=== PATIENT | female | born 1980 | race American Indian/Alaskan Native ===

== ENCOUNTER 2018-01-13 13:05 | Inpatient (IN) | payer MEDICAID ==
[2018-01-13 13:37] LABS: Basophils % (Auto) 0.3 % (0.0-1.8); Eosinophils # (Auto) 0.1 K/mm3 (0.0-0.4); Hematocrit 39.5 % (30.3-42.9); Hemoglobin 13.2 gm/dl (10.1-14.3); Lymphocytes # (Auto) 2.6 K/mm3 (1.2-5.4); Lymphocytes % (Auto) 45.3 % (13.4-35.0); Mean Corpuscular HGB Conc 33 % (30-34); Mean Corpuscular Hemoglobin 27 pg (28-32); Mean Corpuscular Volume 80 fl (79-97); Monocytes # (Auto) 0.7 K/mm3 (0.0-0.8); Monocytes % (Auto) 11.5 % (0.0-7.3); Platelet Count 262 K/mm3 (140-440); Red Blood Count 4.93 M/mm3 (3.65-5.03); Red Cell Distribution Width 15.5 % (13.2-15.2)
[2018-01-13 13:59] LABS: Alanine Aminotransferase 16 units/L (7-56); Albumin 3.7 g/dL (3.9-5); BUN/Creatinine Ratio 10; Blood Urea Nitrogen 8 mg/dL (7-17); Hemolysis Index 5; Lipase 22 units/L (13-60)
[2018-01-13] MEDS ORDERED: DILAUDID IV ONE ×3 (14:45→21:55)
[2018-01-13] MEDS ORDERED: NACL 0.9% 1000 ML 1,000 ML IV ONE ×2 (14:46→18:46)
[2018-01-13] MEDS ORDERED: ZOFRAN IV ONE (14:48)
--- NOTE | 2018-01-13 14:48 | Emergency Department Report ---
ED Abdominal Pain HPI - General Chief Complaint: Abdominal Pain Stated Complaint: SEVERE PAIN MIDDLE STOMACH Time Seen by Provider: 01/13/18 14:46 Source: patient Mode of arrival: Ambulatory Limitations: No Limitations - History of Present Illness MD Complaint: abdominal pain -: Sudden Location: diffuse Radiation: none Migration to: no migration Severity: severe Severity scale (0 -10): 10 Quality: cramping, sharp Consistency: constant Improves With: nothing Worsens With: nothing Context: other (Sickle cell disease) Associated Symptoms: nausea, vomiting Treatments Prior to Arrival: prescription analgesics - Related Data Allergies Allergy/AdvReac Type Severity Reaction Status Date / Time acetaminophen [From Percocet] Allergy Hives Verified 01/13/18 13:17 hydrocodone [From Lortab] Allergy Angioedema Verified 01/13/18 13:17 oxycodone [From Percocet] Allergy Hives Verified 01/13/18 13:17 Penicillins Allergy Hives Verified 01/13/18 13:17 Sulfa (Sulfonamide Allergy Hives Verified 01/13/18 13:17 Antibiotics) ED Review of Systems ROS: Stated complaint: SEVERE PAIN MIDDLE STOMACH Other details as noted in HPI Comment: All other systems reviewed and negative Constitutional: denies: chills, fever Eyes: denies: eye pain ENT: denies: ear pain Respiratory: shortness of breath. denies: cough, orthopnea Cardiovascular: chest pain, palpitations Endocrine: no symptoms reported Gastrointestinal: abdominal pain, nausea, vomiting. denies: diarrhea, constipation Genitourinary: denies: urgency, dysuria, frequency Musculoskeletal: denies: back pain, joint swelling Skin: denies: rash, lesions, change in color Neurological: denies: headache, weakness, numbness Psychiatric: denies: anxiety, depression Hematological/Lymphatic: denies: easy bleeding, easy bruising ED Past Medical Hx - Past Medical History Hx Sickle Cell Disease: Yes - Surgical History Additional Surgical History: pancrea removed - Social History Smoking Status: Never Smoker Substance Use Type: None ED Physical Exam - General Limitations: No Limitations General appearance: alert, in distress - Head Head exam: Present: atraumatic, normocephalic, normal inspection - Eye Eye exam: Present: normal appearance, PERRL, EOMI Pupils: Present: normal accommodation - ENT ENT exam: Present: normal exam, normal orophraynx, mucous membranes moist - Neck Neck exam: Present: normal inspection, full ROM. Absent: tenderness - Respiratory Respiratory exam: Present: normal lung sounds bilaterally. Absent: respiratory distress, wheezes, rales, rhonchi - Cardiovascular Cardiovascular Exam: Present: regular rate, normal rhythm, normal heart sounds - GI/Abdominal GI/Abdominal exam: Present: soft, tenderness, guarding, rebound, normal bowel sounds. Absent: distended - Rectal Rectal exam: Present: deferred - Extremities Exam Extremities exam: Present: normal inspection, full ROM, normal capillary refill. Absent: tenderness - Back Exam Back exam: Present: normal inspection, full ROM - Neurological Exam Neurological exam: Present: alert, oriented X3, CN II-XII intact - Psychiatric Psychiatric exam: Present: normal affect, normal mood. Absent: depressed - Skin Skin exam: Present: warm, dry, intact, normal color. Absent: rash ED Course Vital Signs 01/13/18 01/13/18 01/13/18 13:08 14:30 14:46 Temperature 97.1 F L Pulse Rate 129 H Respiratory 20 Rate Blood Pressure 138/109 111/76 O2 Sat by Pulse 98 100 99 Oximetry 01/13/18 01/13/18 01/13/18 15:00 15:16 15:30 Temperature Pulse Rate Respiratory Rate Blood Pressure 111/76 111/76 111/76 O2 Sat by Pulse 99 99 100 Oximetry 01/13/18 01/13/18 01/13/18 15:46 16:00 16:16 Temperature Pulse Rate Respiratory Rate Blood Pressure 111/76 111/76 111/76 O2 Sat by Pulse 100 100 100 Oximetry 01/13/18 01/13/18 01/13/18 16:30 16:46 17:00 Temperature Pulse Rate Respiratory Rate Blood Pressure 111/76 111/76 111/76 O2 Sat by Pulse 100 100 100 Oximetry 01/13/18 01/13/18 01/13/18 18:50 19:00 19:16 Temperature Pulse Rate Respiratory Rate Blood Pressure 125/72 125/72 108/29 O2 Sat by Pulse 100 96 99 Oximetry 01/13/18 19:30 Temperature Pulse Rate Respiratory Rate Blood Pressure 121/78 O2 Sat by Pulse 99 Oximetry - Reevaluation(s) Reevaluation #1: 01/13/18 20:35 I discussed patient with hospitalist on-call Dr Cagle. He will admit patient to the hospital for further evaluation and management. ED Medical Decision Making - Lab Data Result diagrams: 01/13/18 15:06 01/13/18 15:06 - Radiology Data Radiology results: report reviewed, image reviewed - Medical Decision Making Abdominal Pain. Shortness of Breath. Sickle Cell Pain Crisis. Critical care attestation.: If time is entered above; I have spent that time in minutes in the direct care of this critically ill patient, excluding procedure time. ED Disposition Clinical Impression: Sickle cell pain crisis, Shortness of breath Abdominal pain Qualifiers: Abdominal location: generalized Qualified Code(s): R10.84 - Generalized abdominal pain Clinical Impression: (Ruled Out): Abdominal pain affecting Disposition: OP ADMIT IP TO THIS HOSP Is pt being admited?: Yes Does the pt Need Aspirin: No Condition: Stable Instructions: Abdominal Pain (ED) Referrals: PRIMARY CARE, [Primary Care Provider] - 3-5 Days Time of Disposition: 20:33
[2018-01-13] MEDS ORDERED: BENADRYL ONE ×2 (14:54→21:47)
[2018-01-13] MEDS ORDERED: BENADRYL IV ONE ×2 (15:22→21:55)
[2018-01-13 15:23] LABS: Basophils % (Auto) 0.4 % (0.0-1.8); Eosinophils # (Auto) 0.1 K/mm3 (0.0-0.4); Eosinophils % (Auto) 2.1 % (0.0-4.3); Hemoglobin 12.5 gm/dl (10.1-14.3); Lymphocytes # (Auto) 2.5 K/mm3 (1.2-5.4); Mean Corpuscular HGB Conc 33 % (30-34); Mean Corpuscular Hemoglobin 26 pg (28-32); Mean Corpuscular Volume 80 fl (79-97); Monocytes # (Auto) 0.7 K/mm3 (0.0-0.8); Monocytes % (Auto) 11.8 % (0.0-7.3); Platelet Count 267 K/mm3 (140-440); Red Blood Count 4.77 M/mm3 (3.65-5.03); Red Cell Distribution Width 15.6 % (13.2-15.2)
[2018-01-13 15:32] LABS: INR 0.89 (0.87-1.13); Partial Thromboplastin Time 23.8 Sec. (24.2-36.6)
--- NOTE | 2018-01-13 15:41 | XRay Report ---
FINAL REPORT EXAM: XR CHEST 1V AP HISTORY: SOB TECHNIQUE: AP portable view of the chest PRIORS: None. FINDINGS: Lines, tubes, and devices: N/A Lungs and pleura: Trachea is normal in position. Lungs are clear of infiltrate, pleural effusion, vascular congestion, or pneumothorax. Cardiomediastinal silhouette: Cardiac and mediastinal silhouettes are unremarkable. Other: Bony structures are intact. IMPRESSION: No acute cardiopulmonary process seen.
[2018-01-13 15:42] LABS: Albumin 3.1 g/dL (3.9-5); BUN/Creatinine Ratio 11; Blood Urea Nitrogen 8 mg/dL (7-17); Calcium 8.8 mg/dL (8.4-10.2); Hemolysis Index 291
[2018-01-13 15:59] LABS: Alanine Aminotransferase < 5 units/L (7-56)
[2018-01-13] MEDS ORDERED: TORADOL IV ONE (16:12)
[2018-01-13] MEDS ORDERED: DILAUDID ONE ×2 (18:55→21:47)
--- NOTE | 2018-01-13 20:22 | Cat Scan Report ---
FINAL REPORT EXAM: CT ABDOMEN PELVIS W CON HISTORY: abdominal pain TECHNIQUE: Standard enhanced CT of the abdomen and pelvis. Coronal and sagittal reconstruction was also performed. Delayed imaging through the kidneys and bladder was obtained. Contrast: 100 mL Omnipaque 350 given IV. PRIORS: None. FINDINGS: Within the abdomen, the liver, spleen, pancreas, gallbladder, adrenal glands, and right kidney are unremarkable. There is a 1 cm hypodense rounded cyst in the midpole of the left kidney. No evidence for retroperitoneal or pelvic lymphadenopathy is seen. The bowel loops have normal caliber. No soft tissue mass, fluid collection, inflammatory change, or free air is seen within the abdomen or pelvis. The appendix has been surgically removed. There is a small midline umbilical hernia containing only fat. Within the pelvis, the bladder is unremarkable. Bilateral ureteral jets are noted on delayed images. The uterus contains a T-shaped IUD in the fundal portion. There is a hyperdense 1.5 cm the rounded focus in the right ovary, likely a hemorrhagic cyst. No evidence for mass or lymphadenopathy is seen in the pelvis. Images through the upper abdomen include the lung bases which are expanded and clear. Bony structures show no focal abnormalities and are intact. IMPRESSION: 1. no acute intra-abdominal process noted. 2. Cyst in the left kidney 3. Tiny umbilical hernia containing only fat. 4. Probable hemorrhagic cyst in the right ovary.
--- NOTE | 2018-01-13 20:43 | Cat Scan Report ---
FINAL REPORT EXAM: CT ANGIO CHEST HISTORY: Shortness of breath, elevated D-dimer TECHNIQUE: Enhanced CT of the chest at 2.5 mm axial intervals following a pulmonary embolism protocol. Coronal and sagittal imaging were also obtained. Coronal oblique MIP projections were obtained. Contrast: 100 ml of Omnipaque 350 given IV. PRIORS: None. FINDINGS: There is no evidence for pulmonary embolism in the main pulmonary artery, right and left pulmonary arteries or their major distributions. However, CT does not exclude distal pulmonary emboli. Mild bibasilar linear atelectasis is noted posteriorly. Otherwise, the lung parenchyma are expanded and clear with no evidence for parenchymal nodules, consolidation, congestion, or pleural effusion. There is no evidence for mediastinal, hilar, or axillary adenopathy. Calcified granulomas in the right hilum are noted. Cardiovascular structures are within normal limits. No evidence for ventricular chamber enlargement is seen. Images through the lung bases include the upper abdomen which show no abnormalities of the visualized abdominal viscera. Bony structures demonstrate no focal abnormalities. IMPRESSION: No evidence for pulmonary embolism. Mild bibasilar linear atelectasis and granulomatous disease.
[2018-01-13 20:59] LABS: HCG Qualitative,Urine Negative (Negative)
[2018-01-13 21:02] LABS: Bilirubin,Urine NEG (Negative); Blood,Urine SM (Negative); Color,Urine Yellow (Yellow); Protein,Urine <15 mg/dL mg/dL (Negative); RBC,Urine < 1.0 /HPF (0.0-6.0); Urobilinogen,Urine < 2.0 mg/dL (<2.0)
[2018-01-13] MEDS ORDERED: MILK OF MAGNESIA PO PRN (22:21)
[2018-01-13] MEDS ORDERED: DULCOLAX PR PRN (22:21)
--- NOTE | 2018-01-13 22:28 | History and Physical Report ---
History of Present Illness Date of examination: 01/13/18 History of present illness: 37-year-old woman with history of sickle cell comes to the ER for evaluation of pain. Pain is in the legs, sharp pain, intermittent every 5minutes, intensity 8/10, no radiation, better with pain meds. no nausea vomiting. Also complain of abdominal pain, intermittent for some months, now constant . Her pain was thought to be due to appendicitis was removed recently. Pain in epigastric area, constant, intensiy 7/10, no radiation, worse with bowel movements and associated with cold sweats. Review of systems Constitutional: no weight loss, chills Ears, eyes, nose, mouth and throat: no nasal congestion, no nasal discharge, no sinus pressure, no vision change, no red eye. Neck: No neck pain or rigidity. Cardiovascular: no palpitations, diaphoresis Respiratory: no cough, shortness of breath Gastrointestinal: no hematochezia Genitourinary : no frequency , no hematuria Musculoskeletal: no joint swelling or muscle ache Integumentary: no rash, no pruritis Neurological: no parathesias, no numbness, no focal weakness Endocrine: no cold or heat intolerance, no polyuria or polydipsia Hematologic/Lymphatic: no easy bruising, no easy bleeding, no gland swelling Allergic/Immunologic: no urticaria, no angioedema. PAST MEDICAL HISTORY: Sickle cell PAST SURGICAL HISTORY: Appendectomy, spinal surgery SOCIAL HISTORY: No alcohol abuse, tobacco, drugs FAMILY HISTORY: Hypertension Medications and Allergies Allergies Allergy/AdvReac Type Severity Reaction Status Date / Time acetaminophen [From Percocet] Allergy Hives Verified 01/13/18 13:17 hydrocodone [From Lortab] Allergy Angioedema Verified 01/13/18 13:17 oxycodone [From Percocet] Allergy Hives Verified 01/13/18 13:17 Penicillins Allergy Hives Verified 01/13/18 13:17 Sulfa (Sulfonamide Allergy Hives Verified 01/13/18 13:17 Antibiotics) Exam - Physical Exam Narrative exam: Gen. appearance: Patient lying in bed in no acute distress, on BIPAP HEENT: Normocephalic/atraumatic, pupils equal round reactive to light, extra occular movement intact, no scleral icterus, no JVD or thyromegaly or nodule, neck is supple, mucous membrane moist, no erythema or exudate Heart: S1-S2, regular rate and rhythm Lungs:Clear, breathing comfortable Abdomen: Positive bowel sounds, nontender, nondistended, no organomegaly Extremities: No edema, cyanosis, clubbing Neuro:: Oriented 3 , cranial nerves II-12 intact, speech, motor intact Skin: No rash, nodules, warm dry - Constitutional Vitals: Temp Pulse Resp BP Pulse Ox 97.1 F L 129 H 20 121/78 99 01/13/18 13:08 01/13/18 13:08 01/13/18 13:08 01/13/18 19:30 01/13/18 19:30 Results - Labs CBC & Chem 7: 01/14/18 04:35 01/13/18 15:06 Labs: Abnormal lab results 01/13/18 01/13/18 01/13/18 Range/Units 13:25 13:25 15:06 MCH 27 L (28-32) pg RDW 15.5 H (13.2-15.2) % Lymph % (Auto) 45.3 H (13.4-35.0) % [place] % (Auto) 11.5 H (0.0-7.3) % APTT 23.8 L (24.2-36.6) Sec. D-Dimer 592.26 H (0-234) ng/mlDDU Sodium (137-145) mmol/L Carbon Dioxide (22-30) mmol/L AST (5-40) units/L ALT (7-56) units/L Albumin 3.7 L (3.9-5) g/dL Ur Specific [place] (1.003-1.030) 01/13/18 01/13/18 01/13/18 Range/Units 15:06 15:06 20:03 MCH 26 L (28-32) pg RDW 15.6 H (13.2-15.2) % Lymph % (Auto) 40.0 H (13.4-35.0) % [place] % (Auto) 11.8 H (0.0-7.3) % APTT (24.2-36.6) Sec. D-Dimer (0-234) ng/mlDDU Sodium 133 L (137-145) mmol/L Carbon Dioxide 17 L (22-30) mmol/L AST 50 H (5-40) units/L ALT < 5 L (7-56) units/L Albumin 3.1 L (3.9-5) g/dL Ur Specific [place] 1.035 H (1.003-1.030) - Imaging and Cardiology Chest x-ray: report reviewed CT scan - abdomen: report reviewed CT scan - chest: report reviewed CT scan - pelvis: report reviewed Assessment and Plan Assessment Sickle cell crisis Abdominal pain, NOS Plan Admit to medicine Start sickle cell protocol Iv fluid, IV narcotiv consult surgery DVT prophalaxis
[2018-01-13] MEDS ORDERED: D5/0.45NS 1,000 ML IV SCH (23:00)
[2018-01-14] MEDS ORDERED: BENADRYL IV ONE (00:42)
[2018-01-14] MEDS: DILAUDID IV PRN ×4 (02:26→17:48)
[2018-01-14] MEDS: ZOFRAN IV PRN ×3 (03:51→20:41)
[2018-01-14 05:48] LABS: Basophils % (Auto) 0.2 % (0.0-1.8); Eosinophils # (Auto) 0.2 K/mm3 (0.0-0.4); Hemoglobin 12.2 gm/dl (10.1-14.3); Lymphocytes # (Auto) 1.7 K/mm3 (1.2-5.4); Lymphocytes % (Auto) 31.6 % (13.4-35.0); Mean Corpuscular HGB Conc 33 % (30-34); Mean Corpuscular Hemoglobin 27 pg (28-32); Mean Corpuscular Volume 81 fl (79-97); Monocytes # (Auto) 0.7 K/mm3 (0.0-0.8); Monocytes % (Auto) 12.3 % (0.0-7.3); Platelet Count 235 K/mm3 (140-440); Red Blood Count 4.59 M/mm3 (3.65-5.03); Red Cell Distribution Width 15.7 % (13.2-15.2)
[2018-01-14] MEDS: BENADRYL IV PRN ×3 (07:40→20:40)
--- NOTE | 2018-01-14 09:07 | Progress Note ---
Assessment and Plan Assessment and plan: Sickle cell vaso-occlusive crisis. Admitted to med/surg. ivf with Normal saline. Morphine IV when necessary for pain management Surgery consulted Abdominal pain. Surg consulted DVT prophylaxis Lovenox Full code status. History Interval history: patient with sickle cell disease, leg pain, back pain Abdominal pain Hospitalist Physical - Physical exam Narrative exam: Gen : Not in acute distress, Obese,lying in bed HEENT:Normocephalic, atraumatic Neck: supple, No JVD Lungs:Clear to auscultation bilaterally,no crackles, no wheeze Heart :S1 and S2 reg, no murmurs, rubs or gallop Abd:soft, Tender diffuse, no rebound tenderness, normal bowel sounds Ext: No edema, no clubbing, no cyanosis Neuro: Awake,alert,oriented x 3, no focal signs - Constitutional Vitals: Temp Pulse Resp BP Pulse Ox 98.6 F 79 20 111/73 93 01/14/18 05:05 01/14/18 05:05 01/14/18 07:41 01/14/18 05:05 01/14/18 05:05 Results - Labs CBC & Chem 7: 01/15/18 06:07 01/15/18 06:07 Labs: Laboratory Last Values WBC 5.5 K/mm3 (4.5-11.0) 01/14/18 04:35 RBC 4.59 M/mm3 (3.65-5.03) 01/14/18 04:35 Hgb 12.2 gm/dl (10.1-14.3) 01/14/18 04:35 Hct 37.0 % (30.3-42.9) 01/14/18 04:35 MCV 81 fl (79-97) 01/14/18 04:35 MCH 27 pg (28-32) L 01/14/18 04:35 MCHC 33 % (30-34) 01/14/18 04:35 RDW 15.7 % (13.2-15.2) H 01/14/18 04:35 Plt Count 235 K/mm3 (140-440) 01/14/18 04:35 Lymph % (Auto) 31.6 % (13.4-35.0) 01/14/18 04:35 [place] % (Auto) 12.3 % (0.0-7.3) H 01/14/18 04:35 Eos % (Auto) 3.0 % (0.0-4.3) 01/14/18 04:35 Baso % (Auto) 0.2 % (0.0-1.8) 01/14/18 04:35 Lymph # 1.7 K/mm3 (1.2-5.4) 01/14/18 04:35 [place] # 0.7 K/mm3 (0.0-0.8) 01/14/18 04:35 Eos # 0.2 K/mm3 (0.0-0.4) 01/14/18 04:35 Baso # 0.0 K/mm3 (0.0-0.1) 01/14/18 04:35 Seg Neutrophils % 52.9 % (40.0-70.0) 01/14/18 04:35 Seg Neutrophils # 2.9 K/mm3 (1.8-7.7) 01/14/18 04:35 Percent Retic 1.66 % (0.78-2.58) 01/14/18 04:35 PT 12.5 Sec. (12.2-14.9) 01/13/18 15:06 INR 0.89 (0.87-1.13) 01/13/18 15:06 APTT 23.8 Sec. (24.2-36.6) L 01/13/18 15:06 D-Dimer 592.26 ng/mlDDU (0-234) H 01/13/18 15:06 Sodium 133 mmol/L (137-145) L 01/13/18 15:06 Potassium 4.6 mmol/L (3.6-5.0) D 01/13/18 15:06 Chloride 101.5 mmol/L (98-107) 01/13/18 15:06 Carbon Dioxide 17 mmol/L (22-30) L 01/13/18 15:06 Anion Gap 19 mmol/L 01/13/18 15:06 BUN 8 mg/dL (7-17) 01/13/18 15:06 Creatinine 0.7 mg/dL (0.7-1.2) 01/13/18 15:06 Estimated GFR > 60 ml/min 01/13/18 15:06 BUN/Creatinine Ratio 11 % 01/13/18 15:06 Glucose 88 mg/dL (65-100) 01/13/18 15:06 Calcium 8.8 mg/dL (8.4-10.2) 01/13/18 15:06 Total Bilirubin 0.50 mg/dL (0.1-1.2) 01/13/18 15:06 AST 50 units/L (5-40) H 01/13/18 15:06 ALT < 5 units/L (7-56) L 01/13/18 15:06 Alkaline Phosphatase 46 units/L (35-129) 01/13/18 15:06 Troponin T < 0.010 ng/mL (0.00-0.029) 01/13/18 15:14 NT-Pro-B Natriuret Pep 14.79 pg/mL (0-450) 01/13/18 15:14 Total Protein 7.2 g/dL (6.3-8.2) 01/13/18 15:06 Albumin 3.1 g/dL (3.9-5) L 01/13/18 15:06 Albumin/Globulin Ratio 0.8 % 01/13/18 15:06 Lipase 21 units/L (13-60) 01/13/18 15:06 HCG, Qual Negative (Negative) 01/13/18 13:25 Urine Color Yellow (Yellow) 01/13/18 20:03 Urine Turbidity Clear (Clear) 01/13/18 20:03 Urine pH 6.0 (5.0-7.0) 01/13/18 20:03 Ur Specific [place] 1.035 (1.003-1.030) H 01/13/18 20:03 Urine Protein <15 mg/dl mg/dL (Negative) 01/13/18 20:03 Urine Glucose (UA) Neg mg/dL (Negative) 01/13/18 20:03 Urine Ketones Neg mg/dL (Negative) 01/13/18 20:03 Urine Blood Sm (Negative) 01/13/18 20:03 Urine Nitrite Neg (Negative) 01/13/18 20:03 Ur Reducing Substances Not Reportable 01/13/18 20:03 Urine Bilirubin Neg (Negative) 01/13/18 20:03 Urine Ictotest Not Reportable 01/13/18 20:03 Urine Urobilinogen < 2.0 mg/dL (<2.0) 01/13/18 20:03 Ur Leukocyte Esterase Neg (Negative) 01/13/18 20:03 Urine WBC (Auto) 3.0 /HPF (0.0-6.0) 01/13/18 20:03 Urine RBC (Auto) < 1.0 /HPF (0.0-6.0) 01/13/18 20:03 U Epithel Cells (Auto) 4.0 /HPF (0-13.0) 01/13/18 20:03 Urine HCG, Qual Negative (Negative) 01/13/18 20:03
[2018-01-14] MEDS ORDERED: LOVENOX SUB-Q SCH (10:00)
[2018-01-14] MEDS: LOVENOX SUB-Q SCH (10:09)
[2018-01-14] MEDS: THERAGRAN Tab PO SCH (10:25)
[2018-01-14] MEDS: FOLVITE PO SCH (10:25)
[2018-01-14 10:55] LABS: BUN/Creatinine Ratio 8; Blood Urea Nitrogen 6 mg/dL (7-17); Calcium 8.4 mg/dL (8.4-10.2); Hemolysis Index 87
[2018-01-14] MEDS: D5NS 1,000 ML IV SCH (11:11)
[2018-01-14] MEDS ORDERED: PNEUMOVAX 23 IM ONE (12:00)
--- NOTE | 2018-01-14 13:19 | Consultation ---
History of Present Illness Consult date: 01/14/18 Medications and Allergies Allergies Allergy/AdvReac Type Severity Reaction Status Date / Time acetaminophen [From Percocet] Allergy Hives Verified 01/13/18 13:17 hydrocodone [From Lortab] Allergy Angioedema Verified 01/13/18 13:17 oxycodone [From Percocet] Allergy Hives Verified 01/13/18 13:17 Penicillins Allergy Hives Verified 01/13/18 13:17 Sulfa (Sulfonamide Allergy Hives Verified 01/13/18 13:17 Antibiotics) Active Meds: Active Medications Bisacodyl (Dulcolax) 10 mg CO QDAY PRN PRN Reason: Constipation unrelieved by MOM Diphenhydramine HCl (Benadryl) 25 mg IV Q6H PRN PRN Reason: Itching Last Admin: 01/14/18 07:40 Dose: 25 mg Enoxaparin Sodium (Lovenox) 40 mg SUB-Q QDAY@1000 CARO Last Admin: 01/14/18 10:09 Dose: 40 mg Folic Acid (Folvite) 1 mg PO QDAY [facility] Last Admin: 01/14/18 10:25 Dose: Not Given Hydromorphone HCl (Dilaudid) 2 mg IV Q2H PRN PRN Reason: Pain , Severe (7-10) Stop: 01/14/18 22:20 Last Admin: 01/14/18 12:21 Dose: 2 mg Dextrose/Sodium Chloride (D5ns) 1,000 mls @ 75 mls/hr IV DIRECT [facility] Last Admin: 01/14/18 11:11 Dose: 75 mls/hr Magnesium Hydroxide (Milk Of Magnesia) 30 ml PO Q4H PRN PRN Reason: Constipation Multivitamins (Theragran Tab) 1 each PO QDAY [facility] Last Admin: 01/14/18 10:25 Dose: Not Given Ondansetron HCl (Zofran) 4 mg IV Q4H PRN PRN Reason: Nausea And Vomiting Last Admin: 01/14/18 10:10 Dose: 4 mg Senna (Senokot) 17.2 mg PO QHS [facility] Exam Vital Signs Temp Pulse Resp BP Pulse Ox 97.1 F L 129 H 20 138/109 98 01/13/18 13:08 01/13/18 13:08 01/13/18 13:08 01/13/18 13:08 01/13/18 13:08 Results - Labs 01/14/18 04:35 01/14/18 08:05 Abnormal lab results 01/13/18 01/13/18 01/13/18 Range/Units 13:25 13:25 15:06 MCH 27 L (28-32) pg RDW 15.5 H (13.2-15.2) % Lymph % (Auto) 45.3 H (13.4-35.0) % [place] % (Auto) 11.5 H (0.0-7.3) % APTT 23.8 L (24.2-36.6) Sec. D-Dimer 592.26 H (0-234) ng/mlDDU Sodium (137-145) mmol/L Carbon Dioxide (22-30) mmol/L BUN (7-17) mg/dL AST (5-40) units/L ALT (7-56) units/L Lactate Dehydrogenase (91-180) units/L Albumin 3.7 L (3.9-5) g/dL Ur Specific [place] (1.003-1.030) 01/13/18 01/13/18 01/13/18 Range/Units 15:06 15:06 20:03 MCH 26 L (28-32) pg RDW 15.6 H (13.2-15.2) % Lymph % (Auto) 40.0 H (13.4-35.0) % [place] % (Auto) 11.8 H (0.0-7.3) % APTT (24.2-36.6) Sec. D-Dimer (0-234) ng/mlDDU Sodium 133 L (137-145) mmol/L Carbon Dioxide 17 L (22-30) mmol/L BUN (7-17) mg/dL AST 50 H (5-40) units/L ALT < 5 L (7-56) units/L Lactate Dehydrogenase (91-180) units/L Albumin 3.1 L (3.9-5) g/dL Ur Specific [place] 1.035 H (1.003-1.030) 01/14/18 01/14/18 01/14/18 Range/Units 04:35 04:35 08:05 MCH 27 L (28-32) pg RDW 15.7 H (13.2-15.2) % Lymph % (Auto) (13.4-35.0) % [place] % (Auto) 12.3 H (0.0-7.3) % APTT (24.2-36.6) Sec. D-Dimer (0-234) ng/mlDDU Sodium 136 L (137-145) mmol/L Carbon Dioxide 18 L (22-30) mmol/L BUN 6 L (7-17) mg/dL AST (5-40) units/L ALT (7-56) units/L Lactate Dehydrogenase 209 H (91-180) units/L Albumin (3.9-5) g/dL Ur Specific [place] (1.003-1.030) Diabetes panel 01/13/18 01/13/18 01/14/18 Range/Units 13:25 15:06 08:05 Sodium 138 133 L 136 L (137-145) mmol/L Potassium 3.6 4.6 D 4.4 (3.6-5.0) mmol/L Chloride 102.3 101.5 100.8 (98-107) mmol/L Carbon Dioxide 22 17 L 18 L (22-30) mmol/L BUN 8 8 6 L (7-17) mg/dL Creatinine 0.8 0.7 0.8 (0.7-1.2) mg/dL Glucose 100 88 91 (65-100) mg/dL Calcium 9.0 8.8 8.4 (8.4-10.2) mg/dL AST 27 50 H (5-40) units/L ALT 16 < 5 L (7-56) units/L Alkaline Phosphatase 58 46 (35-129) units/L Total Protein 7.4 7.2 (6.3-8.2) g/dL Albumin 3.7 L 3.1 L (3.9-5) g/dL Calcium panel 01/13/18 01/13/18 01/14/18 Range/Units 13:25 15:06 08:05 Calcium 9.0 8.8 8.4 (8.4-10.2) mg/dL Albumin 3.7 L 3.1 L (3.9-5) g/dL Pituitary panel 01/13/18 01/13/18 01/14/18 Range/Units 13:25 15:06 08:05 Sodium 138 133 L 136 L (137-145) mmol/L Potassium 3.6 4.6 D 4.4 (3.6-5.0) mmol/L Chloride 102.3 101.5 100.8 (98-107) mmol/L Carbon Dioxide 22 17 L 18 L (22-30) mmol/L BUN 8 8 6 L (7-17) mg/dL Creatinine 0.8 0.7 0.8 (0.7-1.2) mg/dL Glucose 100 88 91 (65-100) mg/dL Calcium 9.0 8.8 8.4 (8.4-10.2) mg/dL Adrenal panel 01/13/18 01/13/18 01/14/18 Range/Units 13:25 15:06 08:05 Sodium 138 133 L 136 L (137-145) mmol/L Potassium 3.6 4.6 D 4.4 (3.6-5.0) mmol/L Chloride 102.3 101.5 100.8 (98-107) mmol/L Carbon Dioxide 22 17 L 18 L (22-30) mmol/L BUN 8 8 6 L (7-17) mg/dL Creatinine 0.8 0.7 0.8 (0.7-1.2) mg/dL Glucose 100 88 91 (65-100) mg/dL Calcium 9.0 8.8 8.4 (8.4-10.2) mg/dL Total Bilirubin 0.40 0.50 (0.1-1.2) mg/dL AST 27 50 H (5-40) units/L ALT 16 < 5 L (7-56) units/L Alkaline Phosphatase 58 46 (35-129) units/L Total Protein 7.4 7.2 (6.3-8.2) g/dL Albumin 3.7 L 3.1 L (3.9-5) g/dL Assessment and Plan 37-year-old female with abdominal pain, hx of sickle cell 1. Imaging reviewed. Based on the patient's HPI, physical exam, imaging, I do not feel she has a surgical reason for her abdominal pain. 2. Recommend GI consult as most of the patient's pain is located in the left upper quadrant 3. prn pain and nausea contro 4. IVF 5. May start clear liquids if ok with GI 6. activity as tolerated 7. DVT ppx 8. no acute surgical intervention Thank you for this consultation. Please call with any questions or concerns.
--- NOTE | 2018-01-14 16:35 | Gastroenterology Consultation ---
History of Present Illness - Reason for Consult Consult date: 01/14/18 abdominal pain Requesting physician: JENNA TRACEY - History of Present Illness Patient is a 37 y/o female with PMH of sickle cell who presented to ED with c/o leg pain and abdominal pain with associated N/V which has since resolved. Tolerating liquids. She reports chronic abd pain for the past several years. Pain is mainly in epigastric area but she also has some intermittent diffuse pain. Pain not correlated with eating. She has undergone a ureteral stent and most recently an appendectomy 09/2017 while hospitalized at [place] to which was felt to be the origin of her pain w/o resolution. While hospitalized at [place] she was evaluated by our group for symptoms and underwent an EGD by Dr. Adam that revealed mild gastritis and mild duodenitis with bx results being positive for H. pylori. Patient was instructed to follow up as an outpatient but did not (no treatment given). Takes Aleve occasionally. No hx of PUD. Admits to cold sweat with BMs but denies fever, wt loss, CP, SOB, heartburn , dysphagia, signs of bleeding, rectal pain, constipation, or diarrhea. Past History Past Medical History: other (sickle cell) Past Surgical History: appendectomy, Other (spinal surgery) Social history: denies: smoking, alcohol abuse Family history: hypertension Medications and Allergies Allergies Allergy/AdvReac Type Severity Reaction Status Date / Time acetaminophen [From Percocet] Allergy Hives Verified 01/13/18 13:17 hydrocodone [From Lortab] Allergy Angioedema Verified 01/13/18 13:17 oxycodone [From Percocet] Allergy Hives Verified 01/13/18 13:17 Penicillins Allergy Hives Verified 01/13/18 13:17 Sulfa (Sulfonamide Allergy Hives Verified 01/13/18 13:17 Antibiotics) Active Meds: Active Medications Bisacodyl (Dulcolax) 10 mg ME QDAY PRN PRN Reason: Constipation unrelieved by MOM Diphenhydramine HCl (Benadryl) 25 mg IV Q6H PRN PRN Reason: Itching Last Admin: 01/14/18 13:37 Dose: 25 mg Enoxaparin Sodium (Lovenox) 40 mg SUB-Q QDAY@1000 [facility]O Last Admin: 01/14/18 10:09 Dose: 40 mg Folic Acid (Folvite) 1 mg PO QDAY [facility] Last Admin: 01/14/18 10:25 Dose: Not Given Hydromorphone HCl (Dilaudid) 2 mg IV Q2H PRN PRN Reason: Pain , Severe (7-10) Stop: 01/14/18 22:20 Last Admin: 01/14/18 12:21 Dose: 2 mg Dextrose/Sodium Chloride (D5ns) 1,000 mls @ 75 mls/hr IV DIRECT [facility] Last Admin: 01/14/18 11:11 Dose: 75 mls/hr Magnesium Hydroxide (Milk Of Magnesia) 30 ml PO Q4H PRN PRN Reason: Constipation Multivitamins (Theragran Tab) 1 each PO QDAY [facility] Last Admin: 01/14/18 10:25 Dose: Not Given Ondansetron HCl (Zofran) 4 mg IV Q4H PRN PRN Reason: Nausea And Vomiting Last Admin: 01/14/18 10:10 Dose: 4 mg Senna (Senokot) 17.2 mg PO QHS [facility] Review of Systems - Review of Systems All systems: negative Gastrointestinal: abdominal pain Exam - Constitutional Vital Signs: Temp Pulse Resp BP Pulse Ox 98.5 F 75 20 105/61 95 01/14/18 08:09 01/14/18 15:09 01/14/18 15:09 01/14/18 08:09 01/14/18 15:09 General appearance: no acute distress, obese - Respiratory Respiratory: bilateral: CTA - Cardiovascular Rhythm: regular Heart Sounds: Present: S1 & S2 - Gastrointestinal General gastrointestinal: Present: soft, tender (mild TTP in epigastric area), non-distended, normal bowel sounds - Neurologic Neurological: alert and oriented x3 - Labs CBC & Chem 7: 01/14/18 04:35 01/14/18 08:05 Lab Results: Laboratory Results - last 24 hr 01/13/18 01/14/18 01/14/18 20:03 04:35 04:35 WBC 5.5 RBC 4.59 Hgb 12.2 Hct 37.0 MCV 81 MCH 27 L MCHC 33 RDW 15.7 H Plt Count 235 Lymph % (Auto) 31.6 [place] % (Auto) 12.3 H Eos % (Auto) 3.0 Baso % (Auto) 0.2 Lymph # 1.7 [place] # 0.7 Eos # 0.2 Baso # 0.0 Seg Neutrophils % 52.9 Seg Neutrophils # 2.9 Percent Retic 1.66 Sodium Potassium Chloride Carbon Dioxide Anion Gap BUN Creatinine Estimated GFR BUN/Creatinine Ratio Glucose Calcium Lactate Dehydrogenase 209 H Urine Color Yellow Urine Turbidity Clear Urine pH 6.0 Ur Specific [place] 1.035 H Urine Protein <15 mg/dl Urine Glucose (UA) Neg Urine Ketones Neg Urine Blood Sm Urine Nitrite Neg Ur Reducing Substances Not Reportable Urine Bilirubin Neg Urine Ictotest Not Reportable Urine Urobilinogen < 2.0 Ur Leukocyte Esterase Neg Urine WBC (Auto) 3.0 Urine RBC (Auto) < 1.0 U Epithel Cells (Auto) 4.0 Urine HCG, Qual Negative 01/14/18 08:05 WBC RBC Hgb Hct MCV MCH MCHC RDW Plt Count Lymph % (Auto) [place] % (Auto) Eos % (Auto) Baso % (Auto) Lymph # [place] # Eos # Baso # Seg Neutrophils % Seg Neutrophils # Percent Retic Sodium 136 L Potassium 4.4 Chloride 100.8 Carbon Dioxide 18 L Anion Gap 22 BUN 6 L Creatinine 0.8 Estimated GFR > 60 BUN/Creatinine Ratio 8 Glucose 91 Calcium 8.4 Lactate Dehydrogenase Urine Color Urine Turbidity Urine pH Ur Specific [place] Urine Protein Urine Glucose (UA) Urine Ketones Urine Blood Urine Nitrite Ur Reducing Substances Urine Bilirubin Urine Ictotest Urine Urobilinogen Ur Leukocyte Esterase Urine WBC (Auto) Urine RBC (Auto) U Epithel Cells (Auto) Urine HCG, Qual Assessment and Plan 1.abdominal pain 2.N/V-resolved -afebrile -WBC-WNL -lipase-WNL -AST 50, ALT <5, alk phos 46, T.[place] 0.50 -CT- negative for any acute process -EGD 09/2017 revealed mild gastritis and mild duodenitis -bx positive for H.pylori -etiology unclear- possibly related to H. pylori infection vs other -will start on treatment with Flagyl/clarithromycin/PPI x 2 weeks -abd U/S r/o biliary process -okay for clear liquids -continue supportive care -further recommendations to follow
[2018-01-14] MEDS ORDERED: FLAGYL PO SCH (22:00)
[2018-01-14] MEDS ORDERED: DILAUDID IV ONE (23:45)
[2018-01-15] MEDS: FLAGYL 500 MG/100 ML 500 MG/100 ML BAG IV SCH ×2 (00:06→06:43)
[2018-01-15] MEDS: BIAXIN PO SCH ×3 (00:07→21:26)
[2018-01-15] MEDS: PROTONIX PO SCH ×3 (00:07→21:25)
[2018-01-15] MEDS: SENOKOT PO SCH ×2 (00:08→21:24)
[2018-01-15] MEDS ORDERED: DILAUDID IV ONE ×2 (06:29→22:39)
[2018-01-15] MEDS: BENADRYL IV PRN ×2 (06:54→21:23)
[2018-01-15 07:59] LABS: Basophils % (Auto) 0.3 % (0.0-1.8); Eosinophils # (Auto) 0.2 K/mm3 (0.0-0.4); Eosinophils % (Auto) 3.2 % (0.0-4.3); Hematocrit 37.3 % (30.3-42.9); Hemoglobin 12.1 gm/dl (10.1-14.3); Lymphocytes # (Auto) 2.2 K/mm3 (1.2-5.4); Lymphocytes % (Auto) 39.3 % (13.4-35.0); Mean Corpuscular HGB Conc 32 % (30-34); Mean Corpuscular Hemoglobin 26 pg (28-32); Mean Corpuscular Volume 81 fl (79-97); Monocytes # (Auto) 0.6 K/mm3 (0.0-0.8); Monocytes % (Auto) 11.2 % (0.0-7.3); Platelet Count 241 K/mm3 (140-440); Red Blood Count 4.63 M/mm3 (3.65-5.03); Red Cell Distribution Width 15.3 % (13.2-15.2)
[2018-01-15 08:25] LABS: BUN/Creatinine Ratio 8; Blood Urea Nitrogen 6 mg/dL (7-17); Calcium 8.1 mg/dL (8.4-10.2); Hemolysis Index 0
--- NOTE | 2018-01-15 08:56 | Ultrasound Report ---
FINAL REPORT EXAM: US ABDOMEN COMPLETE HISTORY: abdominal pain, N/V COMPARISONS: CT abdomen and pelvis 01/13/2018 FINDINGS: Grayscale and color Doppler ultrasound evaluation of the abdomen Liver is normal in size and contour. Hepatic parenchymal echogenicity is within normal limits. No parenchymal lesion identified. No intra or extrahepatic biliary ductal dilatation. The common duct measures approximately for millimeters in caliber. Unremarkable sonographic appearance the gallbladder gallbladder wall measures approximately 1-2 millimeters in thickness. Imaged portion of the pancreatic head is sonographically unremarkable. The remainder of the pancreas is not well seen secondary to overlying bowel gas. Unremarkable sonographic appearance of the spleen, which measures up to 9.2 cm in greatest dimension. No abdominal ascites or free fluid in Gomez's pouch. An 11 millimeter simple appearing left renal cyst is noted. The right kidney measures up to 11 cm and the left kidney measures up to 10.5 cm in length. Kidneys are without hydronephrosis or echogenic shadowing foci to suggest nephrolithiasis. Imaged portions of the aorta and inferior vena cava are unremarkable. IMPRESSION: No abdominal ultrasound findings to explain patient's symptoms.
--- NOTE | 2018-01-15 09:09 | Gastroenterology Progress Note ---
Assessment and Plan GI: pt h/o Sickle cell presents w/ pain and nausea - pt reports still w/ nausea, - abdomen ultrasound today - continue clear liquid diet - consider HIDA scan based on ultrasound - pt had recent EGD and no plans to repeat at this time - will follow Subjective Date of service: 01/15/18 Interval history: - reports still nauseous overnight, denies other GI complaints Objective - Constitutional Vitals: Temp Pulse Resp BP Pulse Ox 98.9 F 73 18 138/78 97 01/14/18 23:23 01/14/18 23:23 01/14/18 23:23 01/14/18 23:23 01/14/18 23:23 General appearance: no acute distress - EENT Eyes: PERRL - Respiratory Respiratory: bilateral: CTA - Cardiovascular Rhythm: regular Heart Sounds: Present: S1 & S2 - Gastrointestinal General gastrointestinal: Present: soft, non-tender, non-distended - Labs CBC & Chem 7: 01/15/18 06:07 01/15/18 06:07 Labs: Laboratory Results - last 24 hr 01/14/18 01/14/18 01/15/18 04:35 08:05 06:07 WBC 5.5 RBC 4.63 Hgb 12.1 Hct 37.3 MCV 81 MCH 26 L MCHC 32 RDW 15.3 H Plt Count 241 Lymph % (Auto) 39.3 H [place] % (Auto) 11.2 H Eos % (Auto) 3.2 Baso % (Auto) 0.3 Lymph # 2.2 [place] # 0.6 Eos # 0.2 Baso # 0.0 Seg Neutrophils % 46.0 Seg Neutrophils # 2.5 Percent Retic 1.94 Sodium 136 L Potassium 4.4 Chloride 100.8 Carbon Dioxide 18 L Anion Gap 22 BUN 6 L Creatinine 0.8 Estimated GFR > 60 BUN/Creatinine Ratio 8 Glucose 91 Calcium 8.4 Lactate Dehydrogenase 209 H 01/15/18 06:07 WBC RBC Hgb Hct MCV MCH MCHC RDW Plt Count Lymph % (Auto) [place] % (Auto) Eos % (Auto) Baso % (Auto) Lymph # [place] # Eos # Baso # Seg Neutrophils % Seg Neutrophils # Percent Retic Sodium 141 Potassium 3.5 L D Chloride 103.9 Carbon Dioxide 26 D Anion Gap 15 BUN 6 L Creatinine 0.8 Estimated GFR > 60 BUN/Creatinine Ratio 8 Glucose 87 Calcium 8.1 L Lactate Dehydrogenase
--- NOTE | 2018-01-15 09:32 | Progress Note ---
Assessment and Plan Assessment and plan: Sickle cell vaso-occlusive crisis. Admitted to med/surg. ivf with Normal saline. Morphine IV when necessary for pain management Abdominal pain. Surgery was consulted, and she evaluated the patient and recommends GI evaluation. DVT prophylaxis with Lovenox Full code status. History Interval history: patient with sickle cell disease, leg pain, back pain Abdominal pain Hospitalist Physical - Physical exam Narrative exam: Gen : Not in acute distress, Obese,lying in bed HEENT:Normocephalic, atraumatic Neck: supple, No JVD Lungs:Clear to auscultation bilaterally,no crackles, no wheeze Heart :S1 and S2 reg, no murmurs, rubs or gallop Abd:soft, Tender diffuse, no rebound tenderness, normal bowel sounds Ext: No edema, no clubbing, no cyanosis Neuro: Awake,alert,oriented x 3, no focal signs - Constitutional Vitals: Temp Pulse Resp BP Pulse Ox 98.9 F 73 18 138/78 97 01/14/18 23:23 01/14/18 23:23 01/14/18 23:23 01/14/18 23:23 01/14/18 23:23 Results - Labs CBC & Chem 7: 01/15/18 06:07 01/15/18 06:07 Labs: Laboratory Last Values WBC 5.5 K/mm3 (4.5-11.0) 01/15/18 06:07 RBC 4.63 M/mm3 (3.65-5.03) 01/15/18 06:07 Hgb 12.1 gm/dl (10.1-14.3) 01/15/18 06:07 Hct 37.3 % (30.3-42.9) 01/15/18 06:07 MCV 81 fl (79-97) 01/15/18 06:07 MCH 26 pg (28-32) L 01/15/18 06:07 MCHC 32 % (30-34) 01/15/18 06:07 RDW 15.3 % (13.2-15.2) H 01/15/18 06:07 Plt Count 241 K/mm3 (140-440) 01/15/18 06:07 Lymph % (Auto) 39.3 % (13.4-35.0) H 01/15/18 06:07 [place] % (Auto) 11.2 % (0.0-7.3) H 01/15/18 06:07 Eos % (Auto) 3.2 % (0.0-4.3) 01/15/18 06:07 Baso % (Auto) 0.3 % (0.0-1.8) 01/15/18 06:07 Lymph # 2.2 K/mm3 (1.2-5.4) 01/15/18 06:07 [place] # 0.6 K/mm3 (0.0-0.8) 01/15/18 06:07 Eos # 0.2 K/mm3 (0.0-0.4) 01/15/18 06:07 Baso # 0.0 K/mm3 (0.0-0.1) 01/15/18 06:07 Seg Neutrophils % 46.0 % (40.0-70.0) 01/15/18 06:07 Seg Neutrophils # 2.5 K/mm3 (1.8-7.7) 01/15/18 06:07 Percent Retic 1.94 % (0.78-2.58) 01/15/18 06:07 PT 12.5 Sec. (12.2-14.9) 01/13/18 15:06 INR 0.89 (0.87-1.13) 01/13/18 15:06 APTT 23.8 Sec. (24.2-36.6) L 01/13/18 15:06 D-Dimer 592.26 ng/mlDDU (0-234) H 01/13/18 15:06 Sodium 141 mmol/L (137-145) 01/15/18 06:07 Potassium 3.5 mmol/L (3.6-5.0) L D 01/15/18 06:07 Chloride 103.9 mmol/L (98-107) 01/15/18 06:07 Carbon Dioxide 26 mmol/L (22-30) D 01/15/18 06:07 Anion Gap 15 mmol/L 01/15/18 06:07 BUN 6 mg/dL (7-17) L 01/15/18 06:07 Creatinine 0.8 mg/dL (0.7-1.2) 01/15/18 06:07 Estimated GFR > 60 ml/min 01/15/18 06:07 BUN/Creatinine Ratio 8 % 01/15/18 06:07 Glucose 87 mg/dL (65-100) 01/15/18 06:07 Calcium 8.1 mg/dL (8.4-10.2) L 01/15/18 06:07 Total Bilirubin 0.50 mg/dL (0.1-1.2) 01/13/18 15:06 AST 50 units/L (5-40) H 01/13/18 15:06 ALT < 5 units/L (7-56) L 01/13/18 15:06 Alkaline Phosphatase 46 units/L (35-129) 01/13/18 15:06 Lactate Dehydrogenase 209 units/L (91-180) H 01/14/18 04:35 Troponin T < 0.010 ng/mL (0.00-0.029) 01/13/18 15:14 NT-Pro-B Natriuret Pep 14.79 pg/mL (0-450) 01/13/18 15:14 Total Protein 7.2 g/dL (6.3-8.2) 01/13/18 15:06 Albumin 3.1 g/dL (3.9-5) L 01/13/18 15:06 Albumin/Globulin Ratio 0.8 % 01/13/18 15:06 Lipase 21 units/L (13-60) 01/13/18 15:06 HCG, Qual Negative (Negative) 01/13/18 13:25 Urine Color Yellow (Yellow) 01/13/18 20:03 Urine Turbidity Clear (Clear) 01/13/18 20:03 Urine pH 6.0 (5.0-7.0) 01/13/18 20:03 Ur Specific [place] 1.035 (1.003-1.030) H 01/13/18 20:03 Urine Protein <15 mg/dl mg/dL (Negative) 01/13/18 20:03 Urine Glucose (UA) Neg mg/dL (Negative) 01/13/18 20:03 Urine Ketones Neg mg/dL (Negative) 01/13/18 20:03 Urine Blood Sm (Negative) 01/13/18 20:03 Urine Nitrite Neg (Negative) 01/13/18 20:03 Ur Reducing Substances Not Reportable 01/13/18 20:03 Urine Bilirubin Neg (Negative) 01/13/18 20:03 Urine Ictotest Not Reportable 01/13/18 20:03 Urine Urobilinogen < 2.0 mg/dL (<2.0) 01/13/18 20:03 Ur Leukocyte Esterase Neg (Negative) 01/13/18 20:03 Urine WBC (Auto) 3.0 /HPF (0.0-6.0) 01/13/18 20:03 Urine RBC (Auto) < 1.0 /HPF (0.0-6.0) 01/13/18 20:03 U Epithel Cells (Auto) 4.0 /HPF (0-13.0) 01/13/18 20:03 Urine HCG, Qual Negative (Negative) 01/13/18 20:03
[2018-01-15] MEDS ORDERED: BENADRYL IV NR (10:44)
[2018-01-15] MEDS: LOVENOX SUB-Q SCH (10:47)
[2018-01-15] MEDS: FOLVITE PO SCH (10:47)
[2018-01-15] MEDS: THERAGRAN Tab PO SCH (10:47)
[2018-01-15] MEDS: ZOFRAN IV PRN (10:48)
[2018-01-15] MEDS: MORPHINE IV PRN ×3 (11:02→21:23)
[2018-01-15] MEDS: D5NS 1,000 ML IV SCH (11:03)
[2018-01-15] MEDS: FLAGYL PO SCH ×2 (16:41→21:25)
[2018-01-16] MEDS: D5NS 1,000 ML IV SCH ×2 (00:13→14:05)
[2018-01-16] MEDS: ZOFRAN IV PRN ×4 (00:13→22:05)
[2018-01-16] MEDS: FLAGYL PO SCH ×3 (07:07→22:03)
[2018-01-16] MEDS: MORPHINE IV PRN ×3 (07:38→21:41)
[2018-01-16 08:09] LABS: Basophils % (Auto) 0.4 % (0.0-1.8); Eosinophils # (Auto) 0.2 K/mm3 (0.0-0.4); Eosinophils % (Auto) 4.6 % (0.0-4.3); Hematocrit 36.7 % (30.3-42.9); Hemoglobin 12.2 gm/dl (10.1-14.3); Lymphocytes # (Auto) 1.8 K/mm3 (1.2-5.4); Lymphocytes % (Auto) 38.2 % (13.4-35.0); Mean Corpuscular HGB Conc 33 % (30-34); Mean Corpuscular Hemoglobin 27 pg (28-32); Mean Corpuscular Volume 81 fl (79-97); Monocytes # (Auto) 0.7 K/mm3 (0.0-0.8); Monocytes % (Auto) 14.7 % (0.0-7.3); Platelet Count 245 K/mm3 (140-440); Red Blood Count 4.56 M/mm3 (3.65-5.03); Red Cell Distribution Width 15.4 % (13.2-15.2)
--- NOTE | 2018-01-16 09:44 | Progress Note ---
Assessment and Plan Assessment and plan: Sickle cell vaso-occlusive crisis. Admitted to med/surg. ivf with Normal saline. Morphine IV when necessary for pain management Abdominal pain. CT Abdomen unremarkable, Abdominal ultrasound was also unremarkable. GI and Surg following. DVT prophylaxis with Lovenox Full code status. History Interval history: patient with sickle cell disease, leg pain, back pain Still having Abdominal pain Hospitalist Physical - Physical exam Narrative exam: Gen : Not in acute distress, Obese,lying in bed HEENT:Normocephalic, atraumatic Neck: supple, No JVD Lungs:Clear to auscultation bilaterally,no crackles, no wheeze Heart :S1 and S2 reg, no murmurs, rubs or gallop Abd:soft, Tender diffuse, no rebound tenderness, normal bowel sounds Ext: No edema, no clubbing, no cyanosis Neuro: Awake,alert,oriented x 3, no focal signs - Constitutional Vitals: Temp Pulse Resp BP Pulse Ox 98.9 F 77 20 100/64 95 01/16/18 08:03 01/16/18 08:03 01/16/18 08:03 01/16/18 08:03 01/16/18 08:03 Results - Labs CBC & Chem 7: 01/16/18 06:24 01/15/18 06:07 Labs: Laboratory Last Values WBC 4.7 K/mm3 (4.5-11.0) 01/16/18 06:24 RBC 4.56 M/mm3 (3.65-5.03) 01/16/18 06:24 Hgb 12.2 gm/dl (10.1-14.3) 01/16/18 06:24 Hct 36.7 % (30.3-42.9) 01/16/18 06:24 MCV 81 fl (79-97) 01/16/18 06:24 MCH 27 pg (28-32) L 01/16/18 06:24 MCHC 33 % (30-34) 01/16/18 06:24 RDW 15.4 % (13.2-15.2) H 01/16/18 06:24 Plt Count 245 K/mm3 (140-440) 01/16/18 06:24 Lymph % (Auto) 38.2 % (13.4-35.0) H 01/16/18 06:24 [place] % (Auto) 14.7 % (0.0-7.3) H 01/16/18 06:24 Eos % (Auto) 4.6 % (0.0-4.3) H 01/16/18 06:24 Baso % (Auto) 0.4 % (0.0-1.8) 01/16/18 06:24 Lymph # 1.8 K/mm3 (1.2-5.4) 01/16/18 06:24 [place] # 0.7 K/mm3 (0.0-0.8) 01/16/18 06:24 Eos # 0.2 K/mm3 (0.0-0.4) 01/16/18 06:24 Baso # 0.0 K/mm3 (0.0-0.1) 01/16/18 06:24 Seg Neutrophils % 42.1 % (40.0-70.0) 01/16/18 06:24 Seg Neutrophils # 2.0 K/mm3 (1.8-7.7) 01/16/18 06:24 Percent Retic 1.62 % (0.78-2.58) 01/16/18 06:24 PT 12.5 Sec. (12.2-14.9) 01/13/18 15:06 INR 0.89 (0.87-1.13) 01/13/18 15:06 APTT 23.8 Sec. (24.2-36.6) L 01/13/18 15:06 D-Dimer 592.26 ng/mlDDU (0-234) H 01/13/18 15:06 Sodium 141 mmol/L (137-145) 01/15/18 06:07 Potassium 3.5 mmol/L (3.6-5.0) L D 01/15/18 06:07 Chloride 103.9 mmol/L (98-107) 01/15/18 06:07 Carbon Dioxide 26 mmol/L (22-30) D 01/15/18 06:07 Anion Gap 15 mmol/L 01/15/18 06:07 BUN 6 mg/dL (7-17) L 01/15/18 06:07 Creatinine 0.8 mg/dL (0.7-1.2) 01/15/18 06:07 Estimated GFR > 60 ml/min 01/15/18 06:07 BUN/Creatinine Ratio 8 % 01/15/18 06:07 Glucose 87 mg/dL (65-100) 01/15/18 06:07 Calcium 8.1 mg/dL (8.4-10.2) L 01/15/18 06:07 Total Bilirubin 0.50 mg/dL (0.1-1.2) 01/13/18 15:06 AST 50 units/L (5-40) H 01/13/18 15:06 ALT < 5 units/L (7-56) L 01/13/18 15:06 Alkaline Phosphatase 46 units/L (35-129) 01/13/18 15:06 Lactate Dehydrogenase 176 units/L (91-180) 01/16/18 06:24 Troponin T < 0.010 ng/mL (0.00-0.029) 01/13/18 15:14 NT-Pro-B Natriuret Pep 14.79 pg/mL (0-450) 01/13/18 15:14 Total Protein 7.2 g/dL (6.3-8.2) 01/13/18 15:06 Albumin 3.1 g/dL (3.9-5) L 01/13/18 15:06 Albumin/Globulin Ratio 0.8 % 01/13/18 15:06 Lipase 21 units/L (13-60) 01/13/18 15:06 HCG, Qual Negative (Negative) 01/13/18 13:25 Urine Color Yellow (Yellow) 01/13/18 20:03 Urine Turbidity Clear (Clear) 01/13/18 20:03 Urine pH 6.0 (5.0-7.0) 01/13/18 20:03 Ur Specific [place] 1.035 (1.003-1.030) H 01/13/18 20:03 Urine Protein <15 mg/dl mg/dL (Negative) 01/13/18 20:03 Urine Glucose (UA) Neg mg/dL (Negative) 01/13/18 20:03 Urine Ketones Neg mg/dL (Negative) 01/13/18 20:03 Urine Blood Sm (Negative) 01/13/18 20:03 Urine Nitrite Neg (Negative) 01/13/18 20:03 Ur Reducing Substances Not Reportable 01/13/18 20:03 Urine Bilirubin Neg (Negative) 01/13/18 20:03 Urine Ictotest Not Reportable 01/13/18 20:03 Urine Urobilinogen < 2.0 mg/dL (<2.0) 01/13/18 20:03 Ur Leukocyte Esterase Neg (Negative) 01/13/18 20:03 Urine WBC (Auto) 3.0 /HPF (0.0-6.0) 01/13/18 20:03 Urine RBC (Auto) < 1.0 /HPF (0.0-6.0) 01/13/18 20:03 U Epithel Cells (Auto) 4.0 /HPF (0-13.0) 01/13/18 20:03 Urine HCG, Qual Negative (Negative) 01/13/18 20:03
[2018-01-16] MEDS ORDERED: MORPHINE IV ONE (11:00)
[2018-01-16] MEDS: PROTONIX PO SCH ×2 (11:07→22:03)
[2018-01-16] MEDS: THERAGRAN Tab PO SCH (11:07)
[2018-01-16] MEDS: BIAXIN PO SCH ×2 (11:07→22:03)
[2018-01-16] MEDS: LOVENOX SUB-Q SCH (11:08)
[2018-01-16] MEDS: FOLVITE PO SCH (11:08)
[2018-01-16] MEDS ORDERED: MORPHINE IV PRN ×2 (12:31→13:00)
--- NOTE | 2018-01-16 13:00 | Gastroenterology Progress Note ---
Assessment and Plan GI: pt w/ abdominal pain with nausea - GI eval including ultrasound benign - suspect pain due to SC crisis - pain management and antiemetics per primary team - when tolerating po ok to d/c from GI standpoint - call if needed Subjective Date of service: 01/16/18 Interval history: - reports some pain, otherwise benign Objective - Constitutional Vitals: Temp Pulse Resp BP Pulse Ox 98.9 F 77 20 100/64 95 01/16/18 08:03 01/16/18 08:03 01/16/18 08:03 01/16/18 08:03 01/16/18 08:03 General appearance: no acute distress - EENT Eyes: PERRL - Respiratory Respiratory: bilateral: CTA - Cardiovascular Rhythm: regular Heart Sounds: Present: S1 & S2 - Gastrointestinal General gastrointestinal: Present: soft, non-tender, non-distended - Labs CBC & Chem 7: 01/16/18 06:24 01/15/18 06:07 Labs: Laboratory Results - last 24 hr 01/16/18 01/16/18 06:24 06:24 WBC 4.7 RBC 4.56 Hgb 12.2 Hct 36.7 MCV 81 MCH 27 L MCHC 33 RDW 15.4 H Plt Count 245 Lymph % (Auto) 38.2 H [place] % (Auto) 14.7 H Eos % (Auto) 4.6 H Baso % (Auto) 0.4 Lymph # 1.8 [place] # 0.7 Eos # 0.2 Baso # 0.0 Seg Neutrophils % 42.1 Seg Neutrophils # 2.0 Percent Retic 1.62 Lactate Dehydrogenase 176
--- NOTE | 2018-01-16 15:26 | Hem/Onc Consultation ---
History of Present Illness - Reason for Consult Consult date: 01/16/18 sickle cell crisis - History of Present Illness Ms Erickson is a 37 year old female who presents with epigastric and leg pain. She reports a history of sickle cell disease for which she takes tramadol and folic acid for. 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 She is not sure of the type of sickle cell disease. No history of hydroxyurea use. She reports frequent pain crises. She reports sickle cell disease runs on her father's side of the family. She was admitted with epigastric pain and has been worked up by GI in the setting of recent appendectomy. GI has been unable to locate an etiology for her pain. She is on IV morphine and states she is not getting any relief. Reports headache, stomach pain, and leg pain. Past History Past Medical History: other (sickle cell) Past Surgical History: appendectomy, Other (spinal surgery) Social history: denies: smoking, alcohol abuse Family history: hypertension Medications and Allergies Allergies Allergy/AdvReac Type Severity Reaction Status Date / Time acetaminophen [From Percocet] Allergy Hives Verified 01/13/18 13:17 hydrocodone [From Lortab] Allergy Angioedema Verified 01/13/18 13:17 oxycodone [From Percocet] Allergy Hives Verified 01/13/18 13:17 Penicillins Allergy Hives Verified 01/13/18 13:17 Sulfa (Sulfonamide Allergy Hives Verified 01/13/18 13:17 Antibiotics) Home Medications Medication Instructions Recorded Confirmed Last Taken Type Folic Acid 1 tab PO DAILY 01/16/18 01/16/18 Unknown History Active Meds: Active Medications Bisacodyl (Dulcolax) 10 mg OR QDAY PRN PRN Reason: Constipation unrelieved by MOM Clarithromycin (Biaxin) 500 mg PO Q12HR [facility] Last Admin: 01/16/18 11:07 Dose: 500 mg Diphenhydramine HCl (Benadryl) 25 mg IV Q6H PRN PRN Reason: Itching Last Admin: 01/15/18 21:23 Dose: 25 mg Enoxaparin Sodium (Lovenox) 40 mg SUB-Q QDAY@1000 CARO Last Admin: 01/16/18 11:08 Dose: 40 mg Folic Acid (Folvite) 1 mg PO QDAY [facility] Last Admin: 01/16/18 11:08 Dose: 1 mg Dextrose/Sodium Chloride (D5ns) 1,000 mls @ 75 mls/hr IV DIRECT [facility] Last Admin: 01/16/18 14:05 Dose: 75 mls/hr Magnesium Hydroxide (Milk Of Magnesia) 30 ml PO Q4H PRN PRN Reason: Constipation Metronidazole (Flagyl) 500 mg PO Q8HR [facility] Last Admin: 01/16/18 14:08 Dose: Not Given Morphine Sulfate (Morphine) 4 mg IV Q4H PRN PRN Reason: Pain, Severe (7-10) Multivitamins (Theragran Tab) 1 each PO QDAY [facility] Last Admin: 01/16/18 11:07 Dose: 1 each Ondansetron HCl (Zofran) 4 mg IV Q4H PRN PRN Reason: Nausea And Vomiting Last Admin: 01/16/18 07:37 Dose: 4 mg Pantoprazole Sodium (Protonix) 40 mg PO BID [facility] Last Admin: 01/16/18 11:07 Dose: 40 mg Senna (Senokot) 17.2 mg PO QHS [facility] Last Admin: 01/15/18 21:24 Dose: 17.2 mg Review of Systems Constitutional: fatigue Ears, nose, mouth and throat: headache Cardiovascular: no chest pain Respiratory: no shortness of breath Gastrointestinal: abdominal pain Musculoskeletal: other (leg pain) Hematologic/Lymphatic: other (reported history of sickle cell disease) Exam - Constitutional Vitals: Last Vital Signs Temp 98.9 F 01/16/18 08:03 Pulse 77 01/16/18 08:03 Resp 20 01/16/18 08:03 BP 100/64 01/16/18 08:03 Pulse Ox 95 01/16/18 08:03 General appearance: other (groaning, holding head) - EENT ENT: clear oral mucosa - Neck Neck: supple - Respiratory Respiratory effort: Positive: normal Respiratory: bilateral: CTA - Cardiovascular Rhythm: regular Extremities: No edema - Gastrointestinal General gastrointestinal: Present: soft Results - Labs lab Results: Laboratory Results - last 24 hr 01/16/18 01/16/18 06:24 06:24 WBC 4.7 RBC 4.56 Hgb 12.2 Hct 36.7 MCV 81 MCH 27 L MCHC 33 RDW 15.4 H Plt Count 245 Lymph % (Auto) 38.2 H [place] % (Auto) 14.7 H Eos % (Auto) 4.6 H Baso % (Auto) 0.4 Lymph # 1.8 [place] # 0.7 Eos # 0.2 Baso # 0.0 Seg Neutrophils % 42.1 Seg Neutrophils # 2.0 Percent Retic 1.62 Lactate Dehydrogenase 176 Assessment and Plan 1. History of sickle cell disease - hemoglobin, retic count, and most recent bilirubin normal - no evidence of active hemolysis at this time - will check a hemoglobin electropheresis to confirm diagnosis - would recommend continued workup for alternative etiologies of pain
[2018-01-16] MEDS: SENOKOT PO SCH (22:04)
[2018-01-17] MEDS: D5NS 1,000 ML IV SCH (04:29)
[2018-01-17] MEDS: MORPHINE IV PRN ×2 (04:31→09:33)
[2018-01-17] MEDS: ZOFRAN IV PRN (04:32)
--- NOTE | 2018-01-17 09:11 | Progress Note ---
Hospitalist Physical - Constitutional Vitals: Temp Pulse Resp BP Pulse Ox 98.3 F 61 18 117/70 99 01/17/18 07:56 01/17/18 07:56 01/17/18 07:56 01/17/18 07:56 01/17/18 07:56 Results - Labs CBC & Chem 7: 01/16/18 06:24 01/15/18 06:07 Labs: Laboratory Last Values WBC 4.7 K/mm3 (4.5-11.0) 01/16/18 06:24 RBC 4.56 M/mm3 (3.65-5.03) 01/16/18 06:24 Hgb 12.2 gm/dl (10.1-14.3) 01/16/18 06:24 Hct 36.7 % (30.3-42.9) 01/16/18 06:24 MCV 81 fl (79-97) 01/16/18 06:24 MCH 27 pg (28-32) L 01/16/18 06:24 MCHC 33 % (30-34) 01/16/18 06:24 RDW 15.4 % (13.2-15.2) H 01/16/18 06:24 Plt Count 245 K/mm3 (140-440) 01/16/18 06:24 Lymph % (Auto) 38.2 % (13.4-35.0) H 01/16/18 06:24 [place] % (Auto) 14.7 % (0.0-7.3) H 01/16/18 06:24 Eos % (Auto) 4.6 % (0.0-4.3) H 01/16/18 06:24 Baso % (Auto) 0.4 % (0.0-1.8) 01/16/18 06:24 Lymph # 1.8 K/mm3 (1.2-5.4) 01/16/18 06:24 [place] # 0.7 K/mm3 (0.0-0.8) 01/16/18 06:24 Eos # 0.2 K/mm3 (0.0-0.4) 01/16/18 06:24 Baso # 0.0 K/mm3 (0.0-0.1) 01/16/18 06:24 Seg Neutrophils % 42.1 % (40.0-70.0) 01/16/18 06:24 Seg Neutrophils # 2.0 K/mm3 (1.8-7.7) 01/16/18 06:24 Percent Retic 1.62 % (0.78-2.58) 01/16/18 06:24 PT 12.5 Sec. (12.2-14.9) 01/13/18 15:06 INR 0.89 (0.87-1.13) 01/13/18 15:06 APTT 23.8 Sec. (24.2-36.6) L 01/13/18 15:06 D-Dimer 592.26 ng/mlDDU (0-234) H 01/13/18 15:06 Sodium 141 mmol/L (137-145) 01/15/18 06:07 Potassium 3.5 mmol/L (3.6-5.0) L D 01/15/18 06:07 Chloride 103.9 mmol/L (98-107) 01/15/18 06:07 Carbon Dioxide 26 mmol/L (22-30) D 01/15/18 06:07 Anion Gap 15 mmol/L 01/15/18 06:07 BUN 6 mg/dL (7-17) L 01/15/18 06:07 Creatinine 0.8 mg/dL (0.7-1.2) 01/15/18 06:07 Estimated GFR > 60 ml/min 01/15/18 06:07 BUN/Creatinine Ratio 8 % 01/15/18 06:07 Glucose 87 mg/dL (65-100) 01/15/18 06:07 Calcium 8.1 mg/dL (8.4-10.2) L 01/15/18 06:07 Total Bilirubin 0.50 mg/dL (0.1-1.2) 01/13/18 15:06 AST 50 units/L (5-40) H 01/13/18 15:06 ALT < 5 units/L (7-56) L 01/13/18 15:06 Alkaline Phosphatase 46 units/L (35-129) 01/13/18 15:06 Lactate Dehydrogenase 176 units/L (91-180) 01/16/18 06:24 Troponin T < 0.010 ng/mL (0.00-0.029) 01/13/18 15:14 NT-Pro-B Natriuret Pep 14.79 pg/mL (0-450) 01/13/18 15:14 Total Protein 7.2 g/dL (6.3-8.2) 01/13/18 15:06 Albumin 3.1 g/dL (3.9-5) L 01/13/18 15:06 Albumin/Globulin Ratio 0.8 % 01/13/18 15:06 Lipase 21 units/L (13-60) 01/13/18 15:06 HCG, Qual Negative (Negative) 01/13/18 13:25 Urine Color Yellow (Yellow) 01/13/18 20:03 Urine Turbidity Clear (Clear) 01/13/18 20:03 Urine pH 6.0 (5.0-7.0) 01/13/18 20:03 Ur Specific [place] 1.035 (1.003-1.030) H 01/13/18 20:03 Urine Protein <15 mg/dl mg/dL (Negative) 01/13/18 20:03 Urine Glucose (UA) Neg mg/dL (Negative) 01/13/18 20:03 Urine Ketones Neg mg/dL (Negative) 01/13/18 20:03 Urine Blood Sm (Negative) 01/13/18 20:03 Urine Nitrite Neg (Negative) 01/13/18 20:03 Ur Reducing Substances Not Reportable 01/13/18 20:03 Urine Bilirubin Neg (Negative) 01/13/18 20:03 Urine Ictotest Not Reportable 01/13/18 20:03 Urine Urobilinogen < 2.0 mg/dL (<2.0) 01/13/18 20:03 Ur Leukocyte Esterase Neg (Negative) 01/13/18 20:03 Urine WBC (Auto) 3.0 /HPF (0.0-6.0) 01/13/18 20:03 Urine RBC (Auto) < 1.0 /HPF (0.0-6.0) 01/13/18 20:03 U Epithel Cells (Auto) 4.0 /HPF (0-13.0) 01/13/18 20:03 Urine HCG, Qual Negative (Negative) 01/13/18 20:03
[2018-01-17] MEDS: FLAGYL PO SCH ×2 (09:15→15:08)
[2018-01-17] MEDS: BIAXIN PO SCH (09:33)
[2018-01-17] MEDS: FOLVITE PO SCH (09:35)
[2018-01-17] MEDS: PROTONIX PO SCH (09:35)
[2018-01-17] MEDS: LOVENOX SUB-Q SCH (09:35)
[2018-01-17] MEDS: THERAGRAN Tab PO SCH (09:36)
--- NOTE | 2018-01-17 09:44 | Hem/Onc Progress Note ---
Assessment and Plan Continue to monitor. Awaiting hemoglobin electrophoresis. I doubt that the sickle cell crisis causing her pain especially since reticulocyte count and CBC and LDH are not abnormal. 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 Once pain is controlled she can follow-up with them Subjective Date of service: 01/17/18 Interval history: States she feels a little better. Objective - Constitutional Vitals: Last Vital Signs Temp 98.3 F 01/17/18 07:56 Pulse 61 01/17/18 07:56 Resp 18 01/17/18 07:56 BP 117/70 01/17/18 07:56 Pulse Ox 99 01/17/18 07:56 Pain Intensity (0-10): 3/10 General appearance: no acute distress Performance status: 2- selfcare, ambulatory - Neck Neck: supple - Respiratory Respiratory effort: Positive: normal - Cardiovascular Rhythm: regular Extremities: No edema - Gastrointestinal General gastrointestinal: Present: soft (mildly tender diffuse)
[2018-01-17 15:13] VITALS: BP 122/82
--- NOTE | 2018-01-17 15:15 | Discharge Summary ---
Providers - Providers Date of Admission: 01/13/18 22:21 Date of discharge: 01/17/18 Attending physician: JENNA TRACEY 01/13/18 22:21 Consult to Physician [CONS] Routine Comment: Consulting Provider: KENYON WRIGHT Physician Instructions: Reason For Exam: abd pain 01/14/18 13:38 Consult to Physician [CONS] Routine Comment: Consulting Provider: MANDY CALIX Physician Instructions: Reason For Exam: abd pain, sickle cell 01/14/18 13:46 Consult to Physician [CONS] Routine Comment: Consulting Provider: REBECCA HOUSTON Physician Instructions: Reason For Exam: sickle cell crisis Primary care physician: YAN LERMA Hospitalization Condition: Fair Disposition: DC-01 TO HOME OR SELFCARE Core Measure Documentation - Palliative Care Palliative Care/ Comfort Measures: Not Applicable - Core Measures Any of the following diagnoses?: none Exam - Constitutional Vitals: Temp Pulse Resp BP Pulse Ox 98.3 F 61 18 117/70 99 01/17/18 07:56 01/17/18 07:56 01/17/18 07:56 01/17/18 07:56 01/17/18 07:56 Plan Activity: no restrictions Diet: low fat, low cholesterol, low salt Additional Instructions: 1.Follow up with PCP in 1 week. 2.Follow up with Densitometrist in 1 week. 3.Follow up with Dr. Dalton Calix in 3-5 days for management of H. pylori Follow up with: PRIMARY CARE, [Referring] - 3-5 Days Prescriptions: Pantoprazole [Protonix TAB] 40 mg PO BID #60 tablet
== END 2018-01-17 17:00 | disposition home or self-care (01) | DRG 812 ==
LOC: ED 13:05 → 3A 22:21
PROVIDERS: ADMIT Internal Medicine; ATTEND Internal Medicine
PROC: 3E0234Z Introduction of Serum, Toxoid and Vaccine into Muscle, Percutaneous Approach (ICD-10-PCS; principal; 2018-01-14)
DX: D57.00 Hb-SS disease with crisis, unspecified (principal); Z23 Encounter for immunization; Z90.49 Acquired absence of other specified parts of digestive tract; Z82.49 Family history of ischemic heart disease and other diseases of the circulatory system; Z88.0 Allergy status to penicillin; Z88.2 Allergy status to sulfonamides; Z88.5 Allergy status to narcotic agent
CPT/HCPCS: 36415; 71045; 71275; 74177; 76700; 80048; 80053; 81001; 81025; 83615; 83690; 83880; 84484; 84703; 85025; 85045; 85379; 85610; 85730; 87116; 90732; J1170; J1200; J1650; J1885; J2270; J2405; J7030; J7042; Q9967

== ENCOUNTER 2018-11-24 20:39 | Emergency (ER) | payer MEDICAID ==
--- NOTE | 2018-11-24 20:51 | Emergency Department Report ---
Blank Doc - Documentation Documentation: 38 y/o female comes in for SCD crisis that started this afternoon after having an endoscopy and colonoscopy.
[2018-11-24] MEDS ORDERED: BENADRYL IV ONE (22:05)
[2018-11-24] MEDS ORDERED: DILAUDID IV ONE (22:05)
[2018-11-24] MEDS ORDERED: NACL 0.9% 1000 ML 1,000 ML IV ONE (22:05)
--- NOTE | 2018-11-24 22:08 | Emergency Department Report ---
ED General Adult HPI - General Chief complaint: Sickle Cell Crisis Stated complaint: SICKLE CELL CRISIS Time Seen by Provider: 11/24/18 21:59 Source: patient, family Mode of arrival: Wheelchair Limitations: No Limitations - History of Present Illness Initial comments: Patient is 38 years old female with history of sickle cell disease. Patient presented in a sickle cell crisis that started this afternoon. Patient stated that she had endoscopy and colonoscopy today. Patient complaining of back pain and generalized joint pain. Patient denied any fever or chills. Patient also denied any nausea, abdominal pain or vomiting. - Related Data Home Medications Medication Instructions Recorded Confirmed Last Taken Folic Acid 1 tab PO DAILY 01/16/18 01/16/18 Unknown Previous Rx's Medication Instructions Recorded Last Taken Type Pantoprazole [Protonix TAB] 40 mg PO BID #60 tablet 01/17/18 Unknown Rx traMADol [Ultram 50 MG tab] 50 mg PO Q6HR PRN #20 tablet 01/17/18 Unknown Rx Allergies Allergy/AdvReac Type Severity Reaction Status Date / Time acetaminophen [From Percocet] Allergy Hives Verified 01/13/18 13:17 hydrocodone [From Lortab] Allergy Angioedema Verified 01/13/18 13:17 oxycodone [From Percocet] Allergy Hives Verified 01/13/18 13:17 Penicillins Allergy Hives Verified 01/13/18 13:17 Sulfa (Sulfonamide Allergy Hives Verified 01/13/18 13:17 Antibiotics) ED Review of Systems ROS: Stated complaint: SICKLE CELL CRISIS Other details as noted in HPI Comment: All other systems reviewed and negative Constitutional: denies: chills, fever Respiratory: denies: cough, orthopnea, shortness of breath Cardiovascular: palpitations. denies: chest pain Gastrointestinal: denies: abdominal pain, nausea, vomiting, diarrhea, constipation, hematemesis, hematochezia Musculoskeletal: back pain, arthralgia, myalgia Neurological: denies: headache, weakness, numbness, paresthesias, confusion, abnormal gait ED Past Medical Hx - Past Medical History Previous Medical History?: Yes Hx Congestive Heart Failure: No Hx Diabetes: No Hx Sickle Cell Disease: Yes Hx Asthma: Yes Hx COPD: No - Surgical History Past Surgical History?: Yes Hx Appendectomy: Yes Additional Surgical History: pancreas removed - Social History Smoking Status: Never Smoker Substance Use Type: None - Medications Home Medications: Home Medications Medication Instructions Recorded Confirmed Last Taken Type Folic Acid 1 tab PO DAILY 01/16/18 01/16/18 Unknown History Pantoprazole [Protonix TAB] 40 mg PO BID #60 tablet 01/17/18 Unknown Rx traMADol [Ultram 50 MG tab] 50 mg PO Q6HR PRN #20 tablet 01/17/18 Unknown Rx ED Physical Exam - General Limitations: No Limitations General appearance: alert, in distress (secondary to pain) - Head Head exam: Present: atraumatic, normocephalic - Eye Eye exam: Present: normal appearance, PERRL - ENT ENT exam: Present: normal exam, normal orophraynx, mucous membranes moist - Neck Neck exam: Present: normal inspection, full ROM. Absent: tenderness, meningismus, lymphadenopathy, thyromegaly - Respiratory Respiratory exam: Present: normal lung sounds bilaterally - Cardiovascular Cardiovascular Exam: Present: tachycardia - GI/Abdominal GI/Abdominal exam: Present: soft, normal bowel sounds. Absent: distended, tenderness, guarding, rebound, rigid, organomegaly, mass, bruit, pulsatile mass - Extremities Exam Extremities exam: Present: normal inspection, full ROM, normal capillary refill. Absent: pedal edema, calf tenderness - Back Exam Back exam: Present: normal inspection, full ROM. Absent: tenderness, CVA tenderness (R), CVA tenderness (L), muscle spasm, paraspinal tenderness, vertebral tenderness - Neurological Exam Neurological exam: Present: alert, oriented X3, CN II-XII intact, normal gait, r eflexes normal - Skin Skin exam: Present: warm, intact, normal color ED Course Vital Signs 11/24/18 11/24/18 11/24/18 20:49 22:32 22:33 Temperature 99.8 F H Pulse Rate 122 H 96 H Respiratory 18 18 18 Rate Blood Pressure 161/109 Blood Pressure 125/89 [Left] O2 Sat by Pulse 97 100 100 Oximetry 11/24/18 11/24/18 11/25/18 23:00 23:46 00:00 Temperature Pulse Rate 98 H 88 Respiratory 21 26 H 13 Rate Blood Pressure 128/76 128/72 131/89 Blood Pressure [Left] O2 Sat by Pulse 97 98 Oximetry 11/25/18 02:55 Temperature Pulse Rate 88 Respiratory 18 Rate Blood Pressure Blood Pressure 131/89 [Left] O2 Sat by Pulse 97 Oximetry ED Medical Decision Making - Lab Data Result diagrams: 11/24/18 21:54 11/24/18 21:54 - Radiology Data Radiology results: report reviewed Referring Physician: CARLITOS DURAN Patient Name: LUTHER CHAN Date of : 1980 Sex: Female Report Date: 2018-11-25 Report Status: Finalized Findings [facility] [address] [place] [address] Cat Scan Report Signed Patient: LUTHER CHAN MR#: [id number] 8 : 1980 Acct:[id number] Age/Sex: 38 / F ADM Date: 11/24/18 Loc: ED Attending Dr: Ordering Physician: CARLITOS DURAN Date of Service: 11/25/18 Procedure(s): CT abdomen pelvis w con Accession Number(s): [id number] cc: CARLITOS DURAN PROCEDURE: CT ABDOMEN PELVIS W CON TECHNIQUE: Helical CT was performed of the abdomen after intravenous contrast administration in axial plane. Images are reconstructed in the sagittal and coronal planes. HISTORY: abdominal pain/S/P COLONOSCOPY TODAY COMPARISONS: 01/13/2018 FINDINGS: Images through the lung bases show bibasilar subsegmental atelectasis. There are calcified right hilar lymph nodes consistent with old granulomatous disease. The liver, gallbladder, pancreas, adrenal glands appear normal. There are multiple splenic calcifications consistent with old granulomatous disease. The right kidney appears normal. There is a 9 mm cyst in the left kidney. There is an IUD in the uterus. The uterus and ovaries appear grossly normal. The stomach appears grossly within normal limits. There are no abnormally dilated loops of bowel or acute inflammatory changes. There is no free air. The abdominal aorta has a normal diameter. The bones and subcutaneous soft tissues are unremarkable for age. There is a small umbilical hernia containing normal-appearing fat. IMPRESSION: 1. No acute findings in abdomen/pelvis 2. Evidence of old granulomatous disease 3. Small umbilical hernia containing normal-appearing fat This document is electronically signed by Karl Jackson MD., Nov 25 2018 03:45:11 AM ET Transcribed By: ML Dictated By: KARL JACKSON MD Electronically Authenticated By: KARL JCAKSON MD Signed Date/Time: 11/25/18 0347 DD/ 6 TD/TT: 11/25/18306 - Medical Decision Making Patient is 38 years old female with history of sickle cell disease. Patient presented in a sickle cell crisis that started this afternoon. Patient stated that she had endoscopy and colonoscopy today. Patient complaining of back pain and generalized joint pain. Patient denied any fever or chills. Patient also denied any nausea, abdominal pain or vomiting. Patient received Dilaudid, Benadryl and IV fluids. Labs reviewed and are unremarkable. CT abdomen and pelvis is unremarkable. Patient advised to follow-up with her primary care physician in the next 2-3 days and to return to the ER if symptoms are not improved. Critical care attestation.: If time is entered above; I have spent that time in minutes in the direct care of this critically ill patient, excluding procedure time. ED Disposition Clinical Impression: Sickle cell pain crisis, Abdominal pain Disposition: DC-01 TO HOME OR SELFCARE Is pt being admited?: No Condition: Stable Instructions: Sickle Cell Crisis (ED) Referrals: JOEY FINCH MD [Primary Care Provider] - 3-5 Days
[2018-11-24 22:09] LABS: Basophils # (Auto) 0.1 K/mm3 (0.0-0.1); Basophils % (Auto) 0.5 % (0.0-1.8); Eosinophils # (Auto) 0.1 K/mm3 (0.0-0.4); Eosinophils % (Auto) 1.2 % (0.0-4.3); Hemoglobin 14.1 gm/dl (10.1-14.3); Lymphocytes # (Auto) 3.5 K/mm3 (1.2-5.4); Lymphocytes % (Auto) 28.7 % (13.4-35.0); Mean Corpuscular HGB Conc 33 % (30-34); Mean Corpuscular Volume 81 fl (79-97); Monocytes # (Auto) 1.4 K/mm3 (0.0-0.8); Monocytes % (Auto) 11.4 % (0.0-7.3); Platelet Count 313 K/mm3 (140-440); Red Blood Count 5.28 M/mm3 (3.65-5.03); Red Cell Distribution Width 15.3 % (13.2-15.2)
[2018-11-24 22:32] LABS: Albumin 3.9 g/dL (3.9-5); BUN/Creatinine Ratio 10; Blood Urea Nitrogen 10 mg/dL (7-17); Calcium 8.7 mg/dL (8.4-10.2); Hemolysis Index 145
[2018-11-24 22:33] LABS: INR 0.91 (0.87-1.13)
[2018-11-24 22:37] LABS: Bilirubin,Direct < 0.2 mg/dL (0-0.2)
[2018-11-24 22:38] LABS: Alanine Aminotransferase 26 units/L (7-56)
[2018-11-25 00:06] LABS: Bacteria,Urine 2+ /HPF (Negative); Bilirubin,Urine NEG (Negative); Blood,Urine SM (Negative); Color,Urine Yellow (Yellow); Mucus,Urine FEW /HPF; Protein,Urine <15 mg/dL mg/dL (Negative); Urobilinogen,Urine < 2.0 mg/dL (<2.0)
[2018-11-25] MEDS ORDERED: DILAUDID IV ONE (00:11)
[2018-11-25 00:15] LABS: HCG Qualitative,Urine Negative (Negative)
[2018-11-25] MEDS ORDERED: BENADRYL ONE (02:36)
[2018-11-25] MEDS ORDERED: BENADRYL IV ONE (03:10)
--- NOTE | 2018-11-25 03:47 | Cat Scan Report ---
PROCEDURE: CT ABDOMEN PELVIS W CON TECHNIQUE: Helical CT was performed of the abdomen after intravenous contrast administration in axia l plane. Images are reconstructed in the sagittal and coronal planes. HISTORY: abdominal pain/S/P COLONOSCOPY TODAY COMPARISONS: 01/13/2018 FINDINGS: Images through the lung bases show bibasilar subsegmental atelectasis. There are calcified right man r lymph nodes consistent with old granulomatous disease. The liver, gallbladder, pancreas, adrenal glands appear normal. There are multiple splenic calcificat ions consistent with old granulomatous disease. The right kidney appears normal. There is a 9 mm cyst in the left kidney. There is an IUD in the uter us. The uterus and ovaries appear grossly normal. The stomach appears grossly within normal limits. There are no abnormally dilated loops of bowel or acute inflammatory changes. There is no free air. The abdominal aorta has a normal diameter. The bones and subcutaneous soft tissues are unremarkable for age. There is a small umbilical hernia c ontaining normal-appearing fat. IMPRESSION: 1. No acute findings in abdomen/pelvis 2. Evidence of old granulomatous disease 3. Small umbilical hernia containing normal-appearing fat This document is electronically signed by Phyllis Jackson MD., Nov 25 2018 03:45:11 AM ET
[2018-11-25 05:21] VITALS: BP 118/67
== END 2018-11-25 05:21 | disposition home or self-care (01) ==
LOC: ED 20:39
DX: D57.00 Hb-SS disease with crisis, unspecified (principal); K42.9 Umbilical hernia without obstruction or gangrene; M54.9 Dorsalgia, unspecified; M25.50 Pain in unspecified joint; J45.909 Unspecified asthma, uncomplicated; Z88.0 Allergy status to penicillin; Z88.5 Allergy status to narcotic agent; Z88.2 Allergy status to sulfonamides; Z90.49 Acquired absence of other specified parts of digestive tract
CPT/HCPCS: 36415; 74177; 80048; 80076; 81001; 81025; 85025; 85045; 85610; 96374; 96375; 96376; 99284; J1170; J1200; J7030; Q9967